=== PATIENT | male | born 1990 | race African-American/Black ===

== ENCOUNTER 2017-04-26 02:22 | Emergency (ER) | payer SELFPAY ==
--- NOTE | 2017-04-26 08:22 | RAD ---
THREE VIEWS RIGHT HAND 04/26/2017 HISTORY: Right hand injury. FINDINGS: No obvious acute fracture is seen. There is no dislocation. No other osseous abnormality. IMPRESSION: No acute osseous abnormality involving the right hand. If the patient's symptoms persist, follow-up imaging is advised. POS: [facility]
== END 2017-04-26 04:45 | disposition home or self-care (01) ==
LOC: ERS 02:22
DX: S63.601A Unspecified sprain of right thumb, initial encounter (principal); J45.909 Unspecified asthma, uncomplicated; Z79.899 Other long term (current) drug therapy; W23.0XXA Caught, crushed, jammed, or pinched between moving objects, initial encounter; Y93.61 Activity, american tackle football

== ENCOUNTER 2017-07-17 04:42 | Emergency (ER) | payer SELFPAY ==
[2017-07-17] MEDS ORDERED: Albuterol Sulfate 2.5 mg/0.5 ml Neb ONE (05:06)
[2017-07-17] MEDS ORDERED: predniSONE 20 MG TAB ONE (05:45)
== END 2017-07-17 06:13 | disposition home or self-care (01) ==
LOC: ERS 04:42
DX: J45.901 Unspecified asthma with (acute) exacerbation (principal); F43.10 Post-traumatic stress disorder, unspecified; Z79.899 Other long term (current) drug therapy
CPT/HCPCS: 94640; J7506; J7611; J7620

== ENCOUNTER 2017-09-27 19:45 | Emergency (ER) | payer BC, SELFPAY | END 2017-09-27 21:43 | disposition home or self-care (01) | LOC: ERS 19:45 | DX: J45.909 Unspecified asthma, uncomplicated (principal); F43.10 Post-traumatic stress disorder, unspecified; F17.210 Nicotine dependence, cigarettes, uncomplicated | CPT/HCPCS: 94640; J7620 ==

== ENCOUNTER 2017-10-26 08:33 | Emergency (ER) | payer BC | END 2017-10-26 09:55 | disposition home or self-care (01) | LOC: ERS 08:33 | DX: J45.901 Unspecified asthma with (acute) exacerbation (principal); F17.210 Nicotine dependence, cigarettes, uncomplicated; Z79.899 Other long term (current) drug therapy | CPT/HCPCS: 94640; J7620 ==

== ENCOUNTER 2018-01-26 00:39 | Emergency (ER) | payer BC, SELFPAY ==
--- NOTE | 2018-01-26 08:58 | RAD ---
CHEST TWO VIEWS: Comparison: 10-05-15 History: Dyspnea. FINDINGS: Normal cardiac silhouette. The pulmonary vessels and hilum are normal. Costophrenic angles are clear. No masses or consolidation. No pneumothorax or osseous abnormalities. IMPRESSION: No acute cardiopulmonary process. POS: [facility]
== END 2018-01-26 01:58 | disposition home or self-care (01) ==
LOC: ERS 00:39 → EEVIPCON 00:39 → ERS 01:58
DX: J45.901 Unspecified asthma with (acute) exacerbation (principal); F17.210 Nicotine dependence, cigarettes, uncomplicated
CPT/HCPCS: 71046; 94640; J7620